=== PATIENT | female | born 1955 | race Caucasian/White ===

== ENCOUNTER → 2018-06-28 07:22 | Outpatient (CLI) | payer OTHER, SELFPAY ==
--- NOTE | 2018-06-28 07:28 | BI_ITS ---
MAMMOGRAPHY - BILATERAL SCREENING REASON FOR EXAM: Female, 63 years old. Routine annual screening examination. PERTINENT HISTORY: FAM HX OF MOTHER @ AGE 42 - NO PREV SURG'S - LT MOLE MARKED TECHNIQUE: Digital bilateral breast charan (3D mammographic acquisition) in the CC and MLO projections. 2-D mediolateral oblique (MLO) and craniocaudad (CC) views of both breasts were obtained. CAD: Full Field Digital Mammography with Computer Added Detection was performed. COMPARISON: None. FINDINGS: Breast Composition: The breasts are heterogeneously dense, which may obscure small masses. There is a cluster of microcalcification in the upper inner quadrant of the left breast for which further evaluation by magnification views and ultrasound would be recommended. No other significant abnormalities are identified. BI/SCREENING MAMM (CAD), BILAT IMPRESSION: Further imaging evaluation recommended, as described above. (E) ASSESSMENT CATEGORY: BIRADS Category 0: Incomplete. Need additional imaging evaluation. A letter regarding these results will be sent to the patient by the facility within 30 days. Approximately 10% of breast cancers are not detected by mammography. A normal mammogram should not delay biopsy of a clinically suspicious abnormality. [id number] Electronically Signed: Dominique Urias MD at 15:33 EDT Tel , Service support ,
== END ==
PROVIDERS: Family Provider Internal Medicine; PCP Internal Medicine
DX: Z12.31 Encounter for screening mammogram for malignant neoplasm of breast (principal)
CPT/HCPCS: 77063; 77067

== ENCOUNTER → 2018-07-06 13:50 | Outpatient (CLI) | payer OTHER, SELFPAY ==
--- NOTE | 2018-07-06 13:55 | BI_ITS ---
MAMMOGRAPHY - UNILATERAL DIAGNOSTIC: LEFT BREAST REASON FOR EXAM: Female, 63 years old. Abnormal left mammogram, please see prior mammogram report 06/28/2018. PERTINENT HISTORY: Non-contributory. TECHNIQUE: Digital examination. Mediolateral oblique (MLO) and craniocaudad (CC) views of the breast were obtained. CAD: CAD performed COMPARISON: 06/28/2018, 04/07/2017. FINDINGS: Breast Composition: The breasts are heterogeneously dense, which may obscure small masses. With left true lateral and left CC/MLO spot magnification views, suspicious abnormal microcalcification cluster of variable sizes seen as previously described consistent with neoplasm (DCIS or worse) until proven otherwise. BI/DIAG MAMM W/CAD, UNILAT IMPRESSION: Stereotactic guided biopsy recommended, as described above. (F) Surgical consultation recommended. ASSESSMENT CATEGORY: BIRADS Category 5: Highly Suggestive of Malignancy - Appropriate Action Should Be Taken. A letter regarding these results will be sent to the patient by the facility within 30 days. FOLLOW-UP RECOMMENDATION: Stereo biopsy recommended. (F) Any palpable lesion if present should be followed based on clinical grounds and biopsy performed if clinically persistent for 3 months or increasing size. Approximately 10% of breast cancers are not detected by mammography. A normal mammogram should not delay biopsy of a clinically suspicious abnormality. Dense breast tissue may obscure neoplasm. Electronically Signed: Gene Milo, at 15:29 EDT Tel , Service support ,
== END ==
PROVIDERS: Family Provider Internal Medicine; PCP Internal Medicine
DX: R92.8 Other abnormal and inconclusive findings on diagnostic imaging of breast (principal)
CPT/HCPCS: 77065

== ENCOUNTER → 2018-07-19 07:58 | Outpatient (CLI) | payer OTHER, SELFPAY ==
--- NOTE | 2018-07-19 | IMM_PTH ---
PATIENT: SANDRA SOW LOC: [facility] U#:[id number] AGE/SX: 70/F ROOM: RE07/19/[address]: Dr. Angela Aguirre MD : 1955 BED: DIS: SPEC #: [id number] RECD: 07/20/18 10:22 STATUS: MANUELA REQ #: [id number] MICHAEL: 07/19/18 00:[address]: Angela Aguirre DEPT: IMMUNOHISTOCHEMISTRY RECD BY: Hannah Santamaria ENTERED: 07/20/18 10:28 SP TYPE: IMMUNO OTHR DR: Dr. Valerie Mittal MD Tissues: Left breast, NOS Procedures: CALPONIN-1 (add) CK8 (add) E-CAD (add) HER2 JANEY (add) WY (add) P40 (add) ER (initial) PHYSICIAN & INSTITUTION [place] [id number] SPECIMEN INFORMATION: Tissue Source: Left breast core tissue Clinical Info: Left upper inner quadrant microcalcifications Specimen Number: [id number] CPT code: 05956, 40248 x6 METHODOLOGY: Deparaffinized sections of prefer/formalin-fixed tissue or PAP/DQ stained slides are incubated with monoclonal/polyclonal antibodies/oligonucleotide probes. Localization is made via biotin free immunoperoxidase method. Appropriate controls are performed and reacted as expected. Results on target cell population are indicated in the following table: RESULTS: ANTIBODY / CLONE RESULT E-Cad (ECH-6) positive CK8 ([id number]) positive P40 (BC28) positive Calponin-1 (SG572W) positive ER (clone 6F11) up to 46%, weak WY (clone 16/1E2) 0% Her-2Neu (clone CB11) 3+ The prognostic test for HER2 is performed on formalin-fixed paraffin embedded tissue. A 3+ (positive) staining pattern is defined as intense, homogeneous, complete, circumferential membranous staining in >10% of contiguous tumor cells. A similar weak (2+) staining pattern is interpreted as equivocal. OLAMIDE follow-up testing is recommended for all equivocal cases. Positivity/negativity for ER/WY is reported if > or < 1% of the tumor cells are immuno- reactive, respectively. The ASCO/CAP criteria is used for scoring. Reference: Journal of Clinical Oncology, 2013; 31:5027-2960 & 2010; 16:1963-2703. Duration of fixation: 11 Hrs; Sample Adequate: Yes. These assays have not been validated on decalcified tissues. Results should be interpreted with caution given the likelihood of false negativity on decalcified specimens. These tests were developed and their performance characteristics determined by [facility]. They may not have been cleared or approved by the U.S. Food and Drug Administration. The FDA has determined that such clearance or approval is not necessary. INTERPRETATION: Left breast, core biopsy: Ductal carcinoma in situ. SJ:noe 07/23/18
--- NOTE | 2018-07-19 08:15 | BRBX_PTH ---
PATIENT: SANDRA OSW LOC: [facility] U#:[id number] AGE/SX: 70/F ROOM: RE07/19/[address]: Dr. Angela Aguirre MD : 1955 BED: DIS: SPEC #: [id number] RECD: 07/19/18 09:56 STATUS: MANUELA ANURAG #: [id number] MICHAEL: 07/19/18 08:[address]: Angela Aguirre DEPT: SURGICAL PATHOLOGY RECD BY: Slava Swartz ENTERED: 07/19/18 11:30 SP TYPE: BREAST BX OTHR DR: Dr. Valerie Mittal MD Tissues: Left breast, NOS Procedures: Surgery Specimen Level IV HEADER OPERATION: Left stereotactic breast biopsy PRE-OP DIAGNOSIS: Left upper inner quadrant microcalcifications TISSUE SUBMITTED: Left breast core tissue ISCHEMIC TIME: 1 minute FIXATION TIME: 11 hours MICROSCOPIC DIAGNOSIS Left breast, upper inner quadrant microcalcification, stereotactic needle core biopsy: Ductal carcinoma in situ with the following characteristics: Type - solid, cribriform and comedo. Nuclear grade - 2-3/3 Microcalcification - present Necrosis - present, central (expansive comedo necrosis). Alejo 07/20/18 COMMENT Immunohistochemistry ([id number]) supports the above diagnosis. ER/MS/Hpx5gte studies are being performed on sections of tumor and the results from this study will be reported separately ([id number]). MICROSCOPIC DESCRIPTION Slides are reviewed. GROSS DESCRIPTION Received is one container labeled with the patient's name and not further designated. The specimen consists of multiple elongated fragments of lira-yellow fibroadipose tissue that in aggregate measure 4 x 3 x 0.3 cm. The entire specimen is submitted in two cassettes. / ALISON:noe 07/19/18 TC:0 CPT: 09362 ADDENDUM ADDENDUM ADDENDUM ADDENDUM ADDENDUM ADDENDUM ADDENDUM ADDENDUM ADDENDUM ADDENDUM ADDENDUM 08/10/2018 09:15 ADDENDUM 08/10/2018 09:15 ADDENDUM 08/10/2018 09:15 ADDENDUM 08/10/2018 09:15 ADDENDUM 08/10/2018 09:15 This addendum is added to incorporate an outside pathology report. The case was examined at [facility] (#[id number]) and the following diagnosis was rendered. 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 See comment in patients EMR. Please see complete above mentioned consultation report in EMR
--- NOTE | 2018-07-19 09:45 | PCM.OP.BLANK ---
Operative Report Date of Procedure: 07/19/18 Rocedure: Stereotactic core biopsy Indications: 63 year-old female with cluster of microcalcifications in the medial/central of the left breast. Risk benefits were discussed the patient and she elected to proceed with stereotactic core biopsy with clip placement Description of procedure: Patient was brought into the mammography suite and laid prone on the stereotactic table. A timeout was completed verifying correct patient, procedure, site, specially, prior to beginning procedure. The left breast was prepped and draped in usual sterile fashion and using local anesthesia was obtained with 1% lidocaine with epi. Patient's left breast was positioned and placed into compression. Initial film showed calcifications are in the center of the compression paddle. 15? views were then taken. The calcifications were localized. The left breast was prepped draped in usual sterile fashion. An 8-gauge mammotome was set up according to the digital coordinates. The tract of the mammotome was anesthetized with local anesthesia and an incision was made with the 11 blade scalpel at the entry site. The mammotome was advanced to the prefire state. Pre-prior films were checked and verified. The mammotome was fired. Post fire films were also checked and verified. Biopsies were taken from 10:00 to 2:00. The specimen was x-rayed and a good representation of the calcifications were within the specimen. Mammotome clip was placed at the 12 o'clock position. The mammotome was removed from the breast. Pressure was held for hemostasis for 20 minutes. An additional film was taken which showed a good representation of the calcifications were removed and a clip was in place. Pressure was held for hemostasis for additional 15 minutes. Once hemostasis was assured the wound was dressed with Steri-Strips and OpSite. Patient was taken to mammography she had 2 view mammogram completed. There was noted to be a hematoma at the biopsy site along with some few residual calcifications however the clip was no longer in place. Clip the probably came out with the oozing. However since there are residual calcifications and an area of hematoma, no need to put an additional clip. The patient tolerated the procedure well and was discharged from the mammography suite good condition. complications: none
== END ==
PROVIDERS: Family Provider Internal Medicine; PCP Internal Medicine; Visit Provider Surgery
DX: D05.12 Intraductal carcinoma in situ of left breast (principal); N64.1 Fat necrosis of breast
CPT/HCPCS: 19081; 88305; 88341; 88342; J7050

== ENCOUNTER 2019-09-10 19:47 | Emergency (ER) | payer OTHER, SELFPAY ==
[2019-09-10 19:49] VITALS: BP 164/79; PULSE 77; RESP 14; TEMP 36.9; O2SAT 98; BMI 24.9
--- NOTE | 2019-09-10 20:19 | RAD_ITS ---
STUDY: X-RAY - LEFT HAND REASON FOR EXAM: Female, 64 years old. Pain. Fall. TECHNIQUE: 3 view(s) of the hand. COMPARISON: None. FINDINGS: Normal radiocarpal articulation. Normal distal radioulnar joint. There is fixation plate and screws traversing prior distal radius fracture. Normal visualized carpal bones. Normal carpal articulations Normal carpometacarpal articulation of the thumb. Normal second through fifth carpometacarpal joints. Normal metacarpi. There is degenerative arthrosis of the metacarpophalangeal (MCP) joints. Normal interphalangeal joint of the thumb. Normal proximal and distal phalanges of the thumb. Normal metacarpophalangeal joints of the second through fifth fingers. There is diffuse articular joint space narrowing of the proximal and distal interphalangeal joints of the second through fifth fingers, but without erosive changes or periarticular soft tissue swelling. Normal phalanges of the second through fifth fingers. The soft tissue structures are unremarkable. There is no acute fracture. RAD/Hand Min 3 Views IMPRESSION: Degenerative joint disease of the hand, as described above. Electronically Signed: Tommy Flor MD at 20:36 EST , Service support ,
--- NOTE | 2019-09-10 20:19 | RAD_ITS ---
STUDY: X-RAY - LEFT ELBOW REASON FOR EXAM: Female, 64 years old. Pain. Fall . TECHNIQUE: 4 view(s) of the elbow. COMPARISON: None. FINDINGS: Normal visualized humerus, radius and ulna. Normal radiocapitellar and ulnotrochlear articulations. The soft tissue structures are unremarkable. There is no demonstrated fracture. RAD/Elbow min 3 Views IMPRESSION: Normal x-ray examination of the elbow. Electronically Signed: Tommy Flor MD at 20:35 EST , Service support ,
--- NOTE | 2019-09-10 20:20 | ED.VISSUMM ---
- ER Visit Summary Date of Service: 09/10/19 Chief Complaint: Fall History of Present Illness: The patient is a 64 F presenting after trip and fall. Patient landed on her left elbow. She did not hit her head or lose consciousness. She is not on anticoagulants. She complains of left elbow and left small finger pain. Denies other injuries. Physical Examination: Vitals are stable. Patient is afebrile. Alert no acute distress. HEENT exam is unremarkable. Neck is nontender Lungs are clear and equal bilaterally. Heart is regular rate and rhythm. Abdomen is soft nontender nondistended. Extremities mild diffuse left elbow tenderness. Active full range of motion. Wrist and shoulder are nontender. Mild tenderness of left small finger with active full range of motion. Skin is warm and dry. No focal neurologic deficit. Remainder of exam is unremarkable. Emergency Department Course and Treatment: X-ray left hand shows degenerative changes. X-ray left elbow shows normal x-ray examination of the elbow. Patient has an intolerance to pain medication. She will take Tylenol. She is advised to ice and elevate. She is given a sling. Advised to follow-up with primary care physician. Advised return to the ED for worsening complaints. Disposition: Discharge home Impression: Left elbow contusion status post fall This note was generated with [employer] dictation software. It may contain incorrect words, spelling, and punctuation that were not noted in review of the chart prior to signing ED Disposition - Plan for ED Patient: Disposition: Home or Assisted Living Instructions: Sprain Elbow Referrals: Valerie Mittal MD [Primary Care Provider] - Figueroa Snyder DO [STAFF PHYSICIAN] -
--- NOTE | 2019-09-10 22:25 | ED.DEP ---
ED Disposition - Plan for ED Patient: Instructions: Sprain Elbow Referrals: Valerie Mittal MD [Primary Care Provider] - Figueroa Snyder DO [STAFF PHYSICIAN] -
[2019-09-10 22:35] VITALS: BP 152/80; PULSE 71; RESP 16; O2SAT 98
== END 2019-09-10 22:34 | disposition home or self-care (01) ==
LOC: ED 20:21
PROVIDERS: Emergency Provider Emergency Medicine; Family Provider Internal Medicine; PCP Internal Medicine
DX: S50.02XA Contusion of left elbow, initial encounter (principal); W01.0XXA Fall on same level from slipping, tripping and stumbling without subsequent striking against object, initial encounter; Y93.9 Activity, unspecified
CPT/HCPCS: 73080; 73130; 99283